=== PATIENT | male | born 1990 | race Asian ===

== ENCOUNTER 2022-03-15 17:11 | Emergency (ER) | payer OTHER ==
[~2022-03-15] VITALS: Ht 185.4 cm; Wt 96.6 kg
[2022-03-15] MEDS ORDERED: DIVA500T2 PO (17:23)
[2022-03-15] MEDS ORDERED: PROAIR HFA INH (17:23)
[2022-03-15] MEDS ORDERED: OMEPRAZOLE20 M4 PO (17:24)
[2022-03-15] MEDS ORDERED: PARO20TA3 PO (17:24)
[2022-03-15 17:37] LABS: POTASSIUM 4.2 mmol/L (3.6-5.2)
[2022-03-15 17:42] LABS: PLATELET COUNT 166 K/uL (142-355)
[2022-03-15 19:15] VITALS: BP 128/74; TEMP 98.3
== END 2022-03-15 19:15 ==
LOC: ED 17:11
PROVIDERS: Emergency Medicine
DX: G40.909 Epilepsy, unspecified, not intractable, without status epilepticus (principal); Z79.899 Other long term (current) drug therapy; Z51.81 Encounter for therapeutic drug level monitoring
CPT/HCPCS: 80053; 80164; 80307; 82550; 85027; 99283